=== PATIENT | male | born 1975 | race Caucasian/White ===

== ENCOUNTER 2021-09-02 05:09 | Emergency (ER) | payer OTHER, SELFPAY ==
[2021-09-02] VITALS (10 sets, daily range): BP systolic 117–140; BP diastolic 78–93; PULSE 55–89; RESP 15–19; O2SAT 97–100
--- NOTE | ~2021-09-02 | CT_ITS ---
EXAMINATION: CTA BRAIN/CAROTID DATE: 09/02/2021 07:06 INDICATION: Unresponsive. Left-sided weakness. TECHNIQUE: Computed tomographic angiography (CTA) of the head and neck was performed with 100 mL Omni paque-350 intravenous contrast. Multiplanar reconstructions and maximum intensity projection 3D-recon structions of the carotid arteries and of the intracranial arteries were created by the technologist on a separate workstation. Automated exposure control and iterative reconstruction technique were emp loyed.The dose-length product was 1237.56 mGy-cm. COMPARISON: None. FINDINGS: Carotid arteries: Visualized portion of the aortic arch and the origins of the great vessels are normal with no evident plaque, aneurysm or dissection. No evident atherosclerotic plaque with 0% stenosis of the right dumont tid bulb relative to normal distal artery lumen diameter (NASCET criteria). No evident atheroscleroti c plaque with 0% stenosis of the left carotid bulb relative to normal distal artery lumen diameter. T he extracranial vertebral arteries are normal and codominant. Endotracheal tube tip 3.3 cm above the agnes. Nasogastric tube extends beyond the inferior margin of the press cutter topogram which is at the mid thorax. Mild discoid atelectasis in the posterior right upper lobe. Superior mediastinum and visuali zed bones are unremarkable. Intracranial arteries There is no hemodynamically significant stenosis in the vertebral, basilar and internal carotid arter ies. Vertebral arteries are codominant. There are no aneurysms identified. Both A1 and P1 segments a re patent. There are also small bilateral patent posterior to indicating arteries. There is a complet e or near complete occlusion/thrombosis of the left M1 segment extending into the M2 segments. Contra st likely related to collateral reconstitution of flow in the more peripheral cerebral arteries with relatively contrast within asymmetrically attenuated branch vessels in the region of the sylvian fiss ure but more symmetric cerebral arterial arborization in the peripheral vascular distribution of the left middle cerebral artery. Incidentally noted is prominent dystrophic calcifications at the bilate ral caudate nuclei, lentiform nuclei and thalami. IMPRESSION: 1. 0% stenosis of the chest and right carotid bulbs relative to normal distal artery lumen diameter ( NASCET criteria). 2. Thrombosis with occlusion/near occlusion involving the left M1 and M2 segments but with more perip heral reconstitution of flow likely via collaterals. 3. Prominent symmetric dystrophic calcification is at the bilateral lentiform nuclei, caudate nuclei and thalami which could be seen with either primary Fahr's disease or secondary Fahr's syndrome which has a wide differential including vasculitis, infection, and endocrinopathies, prior carbon dioxide poisoning and multiple frequent inherited metabolic disorders Reviewed, dictated and finalized at [facility]. IMPRESSION: 1. 0% stenosis of the chest and right carotid bulbs relative to normal distal a rtery lumen diameter (NASCET criteria). 2. Thrombosis with occlusion/near occlusion involving the left M1 and M2 segmen ts but with more peripheral reconstitution of flow likely via collaterals. 3. Prominent symmetric dystrophic calcification is at the bilateral lentiform n uclei, caudate nuclei and thalami which could be seen with either primary Fahr' s disease or secondary Fahr's syndrome which has a wide differential including vasculitis, infection, and endocrinopathies, prior carbon dioxide poisoning and multiple frequent inherited metabolic disorders
--- NOTE | ~2021-09-02 | XR_ITS ---
CORRECTED REPORT Procedure changed to XR chest ET placement. XR chest ET [place]20[place] [facility] [place]: 09/02/2021 06:37 INDICATION: Intubation TECHNIQUE: Portable AP chest on 09/02/2021 at 0626 hours COMPARISON: None FINDINGS: ET tube tip is approximately 6.6 cm above agnes; ideal range is 2-5 cm. NG tube is noted in stomach. No central lines. No pulmonary infiltrate or consolidation, pleural effusion or pulmonary vascular congestion or pneumothorax. Cardiac and mediastinal silhouettes are unremarkable for AP projection. IMPRESSION: No active disease ET tube tip 6.6 cm above agnes; ideal range is 2-5 cm Reviewed, dictated and finalized at [facility]. MTDD
--- NOTE | ~2021-09-02 | CT_ITS ---
EXAMINATION: CT brain wo con DATE: 09/02/2021 05:18 INDICATION: Unresponsiveness TECHNIQUE: Computed tomography (CT) of the head was performed without intravenous contrast. The mA wa s adjusted according to patient size. Iterative reconstruction technique was employed. Exam dose: 75 6.67 mGy-cm total exam DLP. COMPARISON: None FINDINGS: Very prominent basal ganglia calcifications and thalamic calcifications are noted bilateral ly. There is asymmetric increased density of the left middle cerebral artery suggesting left middle cereb ral artery thrombosis. No evidence of cerebrovascular accident is detected, but CT is not sensitive for detection of hyperac [place] nonhemorrhagic infarct. No intracranial mass lesion or hemorrhage, midline shift or mass effect is noted. Normal ventricular size. No subdural or epidural hematoma. No orbital mass lesion. The mastoid air cells and paranasal sinuses are normally developed and aerated. No fracture or bone destruction of the cranial vault. IMPRESSION: Very prominent bilateral basal ganglia and thalamic calcifications Asymmetric increased density left middle cerebral artery suggesting thrombosis of this vessel Reviewed, dictated and finalized at [facility]. Reviewed, dictated and finalized at [facility].
--- NOTE | 2021-09-02 05:11 | ECG_ITS ---
Measurements Intervals [place] Rate: 70 P: 54 AK: 177 QRS: 34 QRSD: 94 T: 18 QT: 369 QTc: 399 Interpretive Statements SINUS RHYTHM DELAYED PRECORDIAL R/S TRANSITION BASELINE ARTIFACT- I, II, III, AVR, AVF, V1, V6 BORDERLINE ECG Electronically Signed On 09-02-2021 7:49:55 CDT by Marcel Batista D.O.
--- NOTE | 2021-09-02 05:25 | PC.NURSE ---
0526: keppra started 0531: 27mg amidate 0531: 90mg rocuronium 0532: intubation started 0533: 25 on stylete 2g total of keppra 0537: griffin inserted
[2021-09-02 05:35] LABS: Basophils Absolute Auto 0.1 K/mm3 (0.0-0.1); Basophils Percent Auto 0.7 % (0.2-1.2); Eosinophils Absolute Auto 0.3 K/mm3 (0-0.3); Eosinophils Percent Auto 4.1 % (0-4.4); Hemoglobin 11.7 g/dL (14.0-18.0); Immature Granulocyte Absolute 0.01 K/mm3 (0.00-0.031); Immature Granulocyte Percent A 0.1 % (0-0.5); Lymphocytes Percent Auto 32.4 % (18.3-44.2); Mean Corpuscular HGB Conc 31.6 g/dl (32-36); Mean Corpuscular Volume 88.5 fl (80-100); Mean Platelet Volume 8.8 fl (7.4-10.4); Monocytes Absolute Auto 0.5 K/mm3 (0.1-0.6); Monocytes Percent Auto 6.3 % (2.6-8.5); Neutrophils Percent Auto 56.4 % (45.5-73.1); Platelet Count Result 238 k/mm3 (150-375); Red Blood Count 4.18 M/mm3 (4.6-6.20); Red Cell Distribution Width 14.8 % (11.5-14.5); White Blood Count 7.1 K/mm3 (4.5-10.0)
[2021-09-02 05:45] LABS: INR 1.2; Prothrombin Time 14.7 Seconds (11.1-14.7)
[2021-09-02 05:47] LABS: Alanine Aminotransferase 25 U/L (6-50); Alkaline Phosphatase 79 U/L (38-126); Anion Gap 5 mmol/L (8-16); Aspartate Amino Transferase 31 U/L (17-59); Bilirubin,Total 0.2 mg/dL (0.2-1.3); Blood Urea Nitrogen 16 mg/dL (9-20); Calcium 8.8 mg/dL (8.4-10.2); Carbon Dioxide 28 mmol/L (22-30); Chloride 107 mmol/L (98-107); Estimated CRCL calculation 74 ml/min; Estimated Glomerular Filt Rate > 60; Glucose 115 mg/dL (65-110); Potassium 4.1 mmol/L (3.4-5.0); Sodium 140 mmol/L (137-145)
[2021-09-02 05:48] LABS: Acetaminophen < 10 ug/mL (10-30); Ammonia < 9 umol/L (9-30); Ethanol < 10 mg/dL (<10); Salicylate < 1.0 mg/dL (2-20)
[2021-09-02] MEDS: FENTANYL 2,500MCG/NS250ML(*CRX 2,500 MCG/250 ML BAG IV CONT (05:54)
[2021-09-02] MEDS: MIDAZOLAM 100MG/NS 100ML(*CRX) 100 MG/100 ML BAG IV CONT (05:57)
[2021-09-02 05:59] LABS: Troponin I < 0.012 ng/mL (0.000-0.034)
[2021-09-02 06:09] LABS: Appearance Urine Clear (Clear); Bilirubin Urine Negative (Negative); Blood Urine Negative (Negative); Color Urine Yellow (Yellow); Glucose Urine UA Negative (Negative); Ketones Urine Negative (Negative); Leukocyte Esterase Ur Negative LEU/UL (Negative); Nitrate Urine Negative (Negative); Protein Urine Negative (Negative); Specific Grav Ur >= 1.030 (1.001-1.035); Urobilinogen Urine 0.2 mg/dL (<2.0)
[2021-09-02] MEDS: levETIRAcetam 1000MG/NACL100ML 1,000 MG/100 ML BAG 400 MG (06:09)
[2021-09-02] MEDS: levETIRAcetam 1000MG/NACL100ML 1,000 MG/100 ML BAG 400 MG IVPB (06:09)
[2021-09-02 06:12] LABS: Glucose Point of Care 101 mg/dl (65-105)
[2021-09-02 06:27] LABS: Add Urine Microscopic? NO
[2021-09-02 06:31] LABS: Amphetamine Screen Urine Negative (Negative); Barbiturate Screen Urine Negative (Negative); Benzodiazepines Screen Urine Negative (Negative); Cannabinoid Screen Urine Negative (Negative); Cocaine Screen Urine Negative (Negative); Methadone Screen Urine Negative (Negative); Opiate Screen Urine Negative (Negative); Phencyclidine Screen Urine Negative (Negative)
--- NOTE | 2021-09-02 06:49 | ED.AMS ---
HPI - Altered Mental Status General Chief Complaint: Altered Mental Status Stated Complaint: UNRESPONSIVE Time Seen by Provider: 09/02/21 05:15 History of Present Illness HPI narrative: 45-year-old male presents here unresponsive, his girlfriend noticed some coming motion and pressing on his side of the bed, when she went to look at him, he was not responding to her, she thought that he may have had an even face, she sat him up and he immediately slumped over, at which point she called EMS. Related Data Allergies Allergy/AdvReac Type Severity Reaction Status Date / Time Penicillins Allergy Unknown Unknown Verified 06/01/17 21:51 Review of Systems Review of Systems: ROS unobtainable: Yes unobtainable due to mental status [facility] Past Medical History Medical History (Updated 09/02/21 @ 07:48 by Caroline Blanco MD) Depression Social History Social History (Updated 09/02/21 @ 07:12 by Caroline Blanco MD) Substance use: never Exam Narrative: EXAMINATION OF ORGAN SYSTEMS/BODY AREAS: Constitutional: Vital signs per nursing GENERAL: Unresponsive HEAD: Normal with no signs of head trauma. EYES: No gaze deviation, pupils 3+ bilaterally and responsive to light LUNGS: Nonlabored breathing. HEART: [Regular rate and rhythm] ABD: [Soft], nondistended EXT: Moving right side normally and responding to painful stimulus, not moving left side SKIN: [No rashes or lesions.] NEURO: Unresponsive to verbal stimulus Course Vital Signs Vital signs: Vital Signs Pulse Rate 76 09/02/21 05:20 Respiratory Rate 17 09/02/21 05:20 Blood Pressure 120/78 09/02/21 05:20 Pulse Oximetry 97 09/02/21 05:20 Pulse Rate 89 09/02/21 06:39 Respiratory Rate 18 09/02/21 06:39 Blood Pressure 140/93 H 09/02/21 05:42 Pulse Oximetry 100 09/02/21 05:51 Oxygen Delivery Mechanical Ventilation 09/02/21 05:51 Fraction of Inspired Oxygen 100 09/02/21 05:51 Procedures Intubation Intubation #1: Intubation Date: 09/02/21 sedative: Etomidate Mg Given: 27 paralytic: Rocuronium Mg Given: 90 Laryngoscope: fiber optic video scope Tube Size (cm): 7.5 Method of Intubation: orotracheal Number of Attempts: 1 Tube Secured Depth (cm): 25 Tube Secured Location: lips Tube Placement Confirmation: visualized tube passing through cords, equal breath sounds bilaterally, no breath sounds over epigastrium and confirmation by capnometry Patient Tolerated Procedure: well and no complications MDM - Altered Mental Status MDM Narrative Medical decision making narrative: 45-year-old male presents unresponsive with last known well at 11 PM or 5 hours prior to presentation here, vitals notable for hypoxia, exam shows unresponsive patient who does appear to be less responsive on the left side, my concern is for possible acute CVA versus seizure versus subarachnoid hemorrhage, given his neuro exam and hypoxia and my concern for impending airway compromise I did feel was necessary to intubate him especially as I felt he would likely require higher level of care and I was concerned for possible loss of airway during transport. I did also start him on Keppra. Not TPA candidate given his being out of tPA window; discussed this with his fianc?e. I discussed this with Dr. Holguin and with the neuro ICU physician at [facility]. Dr. Holguin felt there might be a large vessel occlusion based on CT and did request a CTA for better characterization. Notable for occlusion of the M1 segment of the left middle cerebral artery and one segment of M2. I discussed this with his fianc?e at bedside and Dr. Holguin at [facility], he will speak to his attending and the ER, anticipating transfer to [facility] with ER to ER for likely thrombectomy. Lab Data Result diagrams: 09/02/21 05:27 09/02/21 05:27 Labs: Lab Results 09/02/21 09/02/21 09/02/21 Range/Units 05:27 05:27 05:27 W
[2021-09-02 07:51] LABS: SARS-CoV-2 RNA PCR Negative
== END 2021-09-02 09:33 | disposition short-term general hospital (02) ==
PROVIDERS: Emergency Provider Emergency Medicine
DX: I63.512 Cerebral infarction due to unspecified occlusion or stenosis of left middle cerebral artery (principal); R41.82 Altered mental status, unspecified; R09.02 Hypoxemia; Z20.822 Contact with and (suspected) exposure to COVID-19; R94.31 Abnormal electrocardiogram [ECG] [EKG]; R90.89 Other abnormal findings on diagnostic imaging of central nervous system
CPT/HCPCS: 31500; 36415; 70450; 70496; 70498; 71045; 80053; 80307; 81003; 82140; 82948; 84443; 84484; 85025; 85610; 85730; 93005; 96365; 96367; 96375; 99285; C9803; J1953; J2250; J3010; Q9967; U0003; U0005